=== PATIENT | male | born 1990 | race African-American/Black ===

== ENCOUNTER 2019-12-26 14:00 | Emergency (ER) | payer MEDICAID ==
[~2019-12-26] VITALS: Ht 167.6 cm; Wt 70.8 kg
[2019-12-26] MEDS ORDERED: ACETAMINOPHEN ES 500 MG TABLET PO ONE (14:30)
[2019-12-26] MEDS ORDERED: ACETAMINOPHEN ES 500 MG TABLET ONE (14:37)
--- NOTE | 2019-12-26 15:40 | NUR ---
Dr Mortensen at bedside made patient aware of test results.
--- NOTE | 2019-12-26 15:41 | NUR ---
Patient discharged to home in stable conditon. Written and verbal after care instructions given. Patient and verbalizes understanding of instructions.
[2019-12-26 15:43] VITALS: BP 126/73
== END 2019-12-26 15:45 | disposition home or self-care (01) ==
LOC: ER 14:00
DX: S20.212A Contusion of left front wall of thorax, initial encounter (principal); Z60.2 Problems related to living alone; Z88.0 Allergy status to penicillin; Z88.5 Allergy status to narcotic agent; V43.52XA Car driver injured in collision with other type car in traffic accident, initial encounter; Y93.89 Activity, other specified; Y92.410 Unspecified street and highway as the place of occurrence of the external cause; Y99.8 Other external cause status
CPT/HCPCS: 71101; 73080; A4663; A9150